=== PATIENT | male | born 1980 | race Caucasian/White ===

== ENCOUNTER 2019-03-14 20:46 | Emergency (ER) | payer SELFPAY ==
[2019-03-14 21:08] VITALS: BP 146/101; PULSE 79; RESP 18; TEMP 36.9; O2SAT 100; BMI 23.5
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
[2019-03-14 22:06] VITALS: BP 138/71; PULSE 71; RESP 16; TEMP 36.8; O2SAT 99
== END 2019-03-14 22:07 | disposition home or self-care (01) ==
PROVIDERS: Emergency Provider Emergency Medicine
DX: F41.1 Generalized anxiety disorder (principal); F43.0 Acute stress reaction; F17.210 Nicotine dependence, cigarettes, uncomplicated
CPT/HCPCS: 99282